=== PATIENT | female | born 1995 ===

== ENCOUNTER 2020-10-15 07:00 | Emergency (ER) | payer OTHER, MEDICAID ==
[2020-10-15 07:32] VITALS: BP 132/91
--- NOTE | 2020-10-15 08:19 | Emergency Department Report ---
ED Extremity Problem HPI - General Chief complaint: Extremity Injury, Upper Stated complaint: RT HAND SWOLLEN Time Seen by Provider: 10/15/20 08:04 Source: patient Mode of arrival: Ambulatory Limitations: No Limitations - History of Present Illness Initial comments: 25-year-old morbid obese -[place] female presents to the emergency room complaining of right hand pain that started yesterday. Patient states this morning she woke up in her right hand was swollen. Patient denies any injury. Patient states her pain is 10 out of 10. Patient denies any past medical history. States that she taken ibuprofen which did not help. Patient does ad vinny that she eats red meat shrimp. Patient states this is never happened to her. Patient reports she is usually followed by [facility] but came here to be evaluated. MD Complaint: extremity pain, extremity swelling, joint paint Onset/Timin -: days(s) Location: right, upper extremity History of Same: No (Hand) Severity scale (0 -10): 10 Quality: burning, aching Consistency: constant Improves with: nothing Worsens with: palpation Associated Symptoms: denies other symptoms - Related Data Previous Rx's Medication Instructions Recorded Last Taken Type Diclofenac Sodium 50 mg PO BID PRN #15 tablet. 10/15/20 Unknown Rx Prednisone [predniSONE 5 mg (6-Day 5 mg PO .TAPER #1 tab.ds.pk 10/15/20 Unknown Rx Pack, 21 Tabs)] cephALEXin [Keflex] 500 mg PO Q8HR 7 Days #21 cap 10/15/20 Unknown Rx Allergies Allergy/AdvReac Type Severity Reaction Status Date / Time No Known Allergies Allergy Unverified 10/15/20 07:28 ED Review of Systems ROS: Stated complaint: RT HAND SWOLLEN Other details as noted in HPI Comment: All other systems reviewed and negative ED Past Medical Hx - Past Medical History Previous Medical History?: No - Surgical History Additional Surgical History: TONSILS - Social History Smoking Status: Never Smoker Substance Use Type: None - Medications Home Medications: Home Medications Medication Instructions Recorded Confirmed Last Taken Type Diclofenac Sodium 50 mg PO BID PRN #15 tablet. 10/15/20 Unknown Rx Prednisone [predniSONE 5 mg (6-Day 5 mg PO .TAPER #1 tab.ds.pk 10/15/20 Unknown Rx Pack, 21 Tabs)] cephALEXin [Keflex] 500 mg PO Q8HR 7 Days #21 cap 10/15/20 Unknown Rx ED Physical Exam - General Limitations: No Limitations General appearance: alert, in no apparent distress - Head Head exam: Present: atraumatic, normocephalic - Eye Eye exam: Present: normal appearance - ENT ENT exam: Present: mucous membranes moist - Neck Neck exam: Present: normal inspection, full ROM - Respiratory Respiratory exam: Absent: accessory muscle use - Cardiovascular Cardiovascular Exam: Present: regular rate - Expanded Upper Extremity Exam Right Shoulder Exam: Present: normal inspection Upper Arm exam: Present: normal inspection Elbow exam: Present: normal inspection Forearm Wrist exam: Present: normal inspection Hand Wrist exam: Present: full ROM, tenderness, swelling. Absent: ecchymosis, erythema Neuro motor exam: Present: wrist extension intact, thumb opposition intact, thumb IP flexion intact, thumb adduction intact, fingers 2-5 abduction intact Neurosensory exam: Present: 2-point discrimination Vascular: Present: normal capillary refill. Absent: vascular compromise - Back Exam Back exam: Present: normal inspection - Neurological Exam Neurological exam: Present: alert, oriented X3, normal gait - Psychiatric Psychiatric exam: Present: normal affect, normal mood - Skin Skin exam: Present: warm, dry, intact, normal color. Absent: rash ED Course Vital Signs 10/15/20 07:30 Temperature 99.2 F Pulse Rate 89 Respiratory 20 Rate Blood Pressure 132/91 O2 Sat by Pulse 99 Oximetry ED Medical Decision Making - Lab Data Result diagrams: 10/15/20 08:26 - Medical Decision Making 25-year-old morbid obese -[place] female presents to the emergency room complaining of right hand pain that started yesterday. Patient states this morning she woke up in her right hand was swollen. Patient denies any injury. Patient states her pain is 10 out of 10. Patient denies any past medical history. States that she taken ibuprofen which did not help. Patient does admit that she eats red meat shrimp. Patient states this is never happened to her. Patient reports she is usually followed by [facility] but came here to be evaluated. Blood sugar [id number], creatinine and uric acid has been ordered. Once these results will be able determine if we need to treat her for gout. Critical care attestation.: If time is entered above; I have spent that time in minutes in the direct care of this critically ill patient, excluding procedure time. ED Disposition Clinical Impression: Swelling of joint, hand, right Disposition: [id number] TO HOME OR SELFCARE Is pt being admited?: No Does the pt Need Aspirin: No Condition: Stable Additional Instructions: Complete medications as prescribed. Follow-up with your primary care provider. Labs are stable. Prescriptions: Diclofenac Sodium 50 mg PO BID PRN #15 tablet.dr MARY Reason: Pain , Severe (7-10) cephALEXin [Keflex] 500 mg PO Q8HR 7 Days #21 cap Prednisone [predniSONE 5 mg (6-Day Pack, 21 Tabs)] 5 mg PO .TAPER #1 tab.ds.pk Referrals: MERCY SALAS MD [Staff Physician] - 3-5 Days Forms: Work/School Release Form(ED) Time of Disposition: 09:42
[2020-10-15 09:04] LABS: Uric Acid 4.3 mg/dL (3.5-7.6)
== END 2020-10-15 11:13 | disposition home or self-care (01) ==
LOC: ED 07:00
DX: M25.441 Effusion, right hand (principal); Z79.899 Other long term (current) drug therapy
CPT/HCPCS: 36415; 82565; 82962; 84550